=== PATIENT | female | born 1960 | race Caucasian/White ===

== ENCOUNTER 2017-02-11 09:02 | Day surgery (SDC) | payer BC ==
[~2017-02-11] VITALS: Ht 162.6 cm; Wt 95.7 kg
[~2017-02-11 09:02] MED LIST: ADVAIR 250/501 DISK IH; BENEFIBER98 GM PO; CENTRUM SILVER1 EAC4 PO; DULCOLAX5 MG PO; ENOXAPARIN40 MG/0.4 SC; FLEXERIL10 MG PO; FLONASE16 G1 BOTH NARES; GABAPENTIN100 MG PO; HUMIRA40 MG/0.8 SC; IRON325 M1 PO; LIDOCAINE700 MG TD; LOSARTAN POTASS25 MG PO; MAXZIDE 37.5 M1 EACH PO; METHOTREXATE2.5 MG PO; OXYCODONE-ACET1 EACH PO; PROAIR HFA8.5 GM IH; PROTONIX40 MG PO; TRAMADOL HCL50 MG PO; VENLAFAXINE H37.5 MG PO; VERAPAMIL HCL240 MG PO; ZYRTEC10 M3 PO
[2017-02-11] MEDS ORDERED: SINGULAIR10 MG PO (09:28)
[2017-02-11] MEDS ORDERED: TRAMADOL HCL50 MG PO (09:29)
[2017-02-11] MEDS ORDERED: ATARAX,VISTARIL25 MG PO (09:30)
[2017-02-11] MEDS ORDERED: CELEBREX200 MG PO (09:30)
[2017-02-11] MEDS ORDERED: ZANTAC150 MG PO (09:31)
== END 2017-02-11 10:27 | disposition home or self-care (01) ==
LOC: PAIN 09:02 → SDC 09:30 → PAIN 10:27
DX: M47.26 Other spondylosis with radiculopathy, lumbar region (principal); M54.5 Low back pain; M45.9 Ankylosing spondylitis of unspecified sites in spine; D86.9 Sarcoidosis, unspecified; I10 Essential (primary) hypertension; E86.9 Volume depletion, unspecified; M79.7 Fibromyalgia; J44.9 Chronic obstructive pulmonary disease, unspecified; K21.9 Gastro-esophageal reflux disease without esophagitis
CPT/HCPCS: J1030; J2250; J3010; S0020

== ENCOUNTER 2017-02-18 09:38 | Day surgery (SDC) | payer BC ==
[~2017-02-18] VITALS: Ht 167.6 cm; Wt 94.8 kg
[~2017-02-18 09:38] MED LIST changes: +ATARAX,VISTARIL25 MG PO; +CELEBREX200 MG PO; +SINGULAIR10 MG PO; +ZANTAC150 MG PO
== END 2017-02-18 10:45 | disposition home or self-care (01) ==
LOC: PAIN 09:38 → SDC 10:15 → PAIN 10:15
DX: M47.26 Other spondylosis with radiculopathy, lumbar region (principal); D86.9 Sarcoidosis, unspecified; M25.552 Pain in left hip; I10 Essential (primary) hypertension; M79.7 Fibromyalgia; M19.90 Unspecified osteoarthritis, unspecified site; Z96.642 Presence of left artificial hip joint; Z88.8 Allergy status to other drugs, medicaments and biological substances
CPT/HCPCS: J1030; J2250; J3010; S0020

== ENCOUNTER 2017-05-20 07:56 | Day surgery (SDC) | payer BC ==
[~2017-05-20] VITALS: Ht 162.6 cm; Wt 90.7 kg
== END 2017-05-20 09:54 | disposition home or self-care (01) ==
LOC: PAIN 07:56 → SDC 08:30 → PAIN 09:54
DX: M47.26 Other spondylosis with radiculopathy, lumbar region (principal); M54.5 Low back pain; G89.29 Other chronic pain; M25.552 Pain in left hip; M45.6 Ankylosing spondylitis lumbar region; D86.9 Sarcoidosis, unspecified; M79.7 Fibromyalgia; I10 Essential (primary) hypertension; K21.9 Gastro-esophageal reflux disease without esophagitis; Z88.0 Allergy status to penicillin; E66.3 Overweight; Z68.33 Body mass index [BMI] 33.0-33.9, adult
CPT/HCPCS: J1030; J2250; J3010; S0020

== ENCOUNTER 2017-08-01 11:38 | Day surgery (SDC) | payer BC ==
[~2017-08-01] VITALS: Ht 162.6 cm; Wt 93.0 kg
== END 2017-08-01 13:58 | disposition home or self-care (01) ==
LOC: PAIN 11:38 → SDC 12:30 → PAIN 12:30
DX: M48.061 Spinal stenosis, lumbar region without neurogenic claudication (principal); R05 Cough; R06.2 Wheezing; Z53.09 Procedure and treatment not carried out because of other contraindication
CPT/HCPCS: J1100; J2250

== ENCOUNTER 2017-11-26 09:19 | Day surgery (SDC) | payer BC, OTHER ==
[~2017-11-26] VITALS: Ht 162.6 cm; Wt 93.0 kg
[~2017-11-26 09:19] MED LIST changes: +CALCIUM 500 MG1 EACH PO
== END 2017-11-26 11:10 | disposition home or self-care (01) ==
LOC: PAIN 09:19 → SDC 09:45 → PAIN 11:10
PROC: 3E0R3BZ Introduction of Anesthetic Agent into Spinal Canal, Percutaneous Approach (ICD-10-PCS; principal; 2017-11-26)
PROC: 3E0R33Z Introduction of Anti-inflammatory into Spinal Canal, Percutaneous Approach (ICD-10-PCS; principal; 2017-11-26)
DX: M47.816 Spondylosis without myelopathy or radiculopathy, lumbar region (principal); M54.16 Radiculopathy, lumbar region; M48.061 Spinal stenosis, lumbar region without neurogenic claudication; D86.9 Sarcoidosis, unspecified; M79.7 Fibromyalgia; J44.9 Chronic obstructive pulmonary disease, unspecified; I10 Essential (primary) hypertension; Z79.891 Long term (current) use of opiate analgesic; Z88.0 Allergy status to penicillin; Z88.1 Allergy status to other antibiotic agents
CPT/HCPCS: J1100; J2250